=== PATIENT | female | born 1940 | race Caucasian/White ===

== ENCOUNTER 2016-08-04 08:00 | Emergency (ER) | payer OTHER ==
[2016-08-04 09:34] LABS: HEMOGLOBIN 13.6 gm/dl (12.3-15.3); RED BLOOD COUNT 4.35 M/UL (4.00-5.10); WHITE BLOOD COUNT 6.4 K/UL (4.5-11.0)
[2016-08-04 09:53] LABS: BUN/CREATININE RATIO 15 (0-10)
== END 2016-08-04 12:25 | disposition home or self-care (01) ==
LOC: ER1 08:00
PROVIDERS: Emergency Medicine
DX: R07.81 Pleurodynia (principal); N39.0 Urinary tract infection, site not specified; R79.1 Abnormal coagulation profile; I48.91 Unspecified atrial fibrillation; I10 Essential (primary) hypertension; Z79.01 Long term (current) use of anticoagulants; Z88.0 Allergy status to penicillin; Z88.2 Allergy status to sulfonamides; W01.0XXA Fall on same level from slipping, tripping and stumbling without subsequent striking against object, initial encounter; Z79.899 Other long term (current) drug therapy
CPT/HCPCS: 71101; 80053; 81001; 85025; 85610; 87086; 99283

== ENCOUNTER → 2016-11-05 | Outpatient (CLI) | payer MEDICARE, OTHER | LOC: CT 08:30 | DX: Z00.01 Encounter for general adult medical examination with abnormal findings (principal); E03.8 Other specified hypothyroidism; E78.2 Mixed hyperlipidemia; G44.89 Other headache syndrome; I48.2 Chronic atrial fibrillation; K21.9 Gastro-esophageal reflux disease without esophagitis; M79.7 Fibromyalgia; N32.89 Other specified disorders of bladder; N39.0 Urinary tract infection, site not specified; R10.30 Lower abdominal pain, unspecified; R23.8 Other skin changes; R53.83 Other fatigue; I10 Essential (primary) hypertension | CPT/HCPCS: 36415; 70491; 82565; 84520; J7050; Q9965 ==

== ENCOUNTER → 2021-10-02 | Outpatient (CLI) | payer OTHER ==
[~2021-10-02] MED LIST: COUMADIN2 MG PO; CRESTOR20 MG PO; LIORESAL TAB 1010 MG PO; NORVASC 5 MG TAB5 MG PO; OMEPRAZOLE20 MG PO; PRINIVIL20 MG PO; SINGULAIR10 MG PO; SOTALOL80 MG PO; SYNTHROID 50 M50 MCG PO; TRAMADOL-ACETA1 EACH PO
[2021-10-02 09:24] LABS: HEMOGLOBIN 13.6 gm/dl (12.3-15.3); RED BLOOD COUNT 4.26 M/UL (4.00-5.10); WHITE BLOOD COUNT 11.3 K/UL (4.5-11.0)
[2021-10-02 09:47] LABS: BUN/CREATININE RATIO 25 (0-10)
[2021-10-03 20:11] LABS: CHOLESTEROL, TOTAL 151 mg/dL (100-199); HDL SIZE 8.7 nm (>=9.2); HDL-C 47 mg/dL (>39); HDL-P (TOTAL) 31.2 umol/L (>=30.5); LDL SIZE 20.3 nm (>20.5); LDL SIZE 20.3 nm (>=20.8); LDL-C 86 mg/dL (0-99); LDL-P 1351 nmol/L (<1000); LP-IR SCORE 66 (<=45); SMALL LDL-P 848 nmol/L (<=527); TRIGLYCERIDES 96 mg/dL (0-149); VLDL SIZE 46.9 nm (<=46.6)
== END ==
LOC: LAB 08:41
PROVIDERS: Nurse Practitioner
DX: M54.2 Cervicalgia (principal); I10 Essential (primary) hypertension; I48.20 Chronic atrial fibrillation, unspecified; E78.2 Mixed hyperlipidemia; E03.8 Other specified hypothyroidism
CPT/HCPCS: 36415; 80053; 80061; 83704; 84443; 84550; 85025

== ENCOUNTER → 2021-11-02 | Outpatient (CLI) | payer OTHER ==
[2021-11-02 09:55] LABS: BUN/CREATININE RATIO 18 (0-10)
== END ==
LOC: LAB 08:48
PROVIDERS: Emergency Medicine
DX: J02.9 Acute pharyngitis, unspecified (principal); J30.9 Allergic rhinitis, unspecified; I10 Essential (primary) hypertension; R73.03 Prediabetes
CPT/HCPCS: 36415; 80053; 83036

== ENCOUNTER → 2021-11-27 | Outpatient (CLI) | payer OTHER | LOC: KOH-I 09:13 | DX: R22.1 Localized swelling, mass and lump, neck (principal); J02.9 Acute pharyngitis, unspecified; J30.89 Other allergic rhinitis; J35.8 Other chronic diseases of tonsils and adenoids; J32.9 Chronic sinusitis, unspecified | CPT/HCPCS: 70490 ==